=== PATIENT | male | born 1955 | race Caucasian/White ===

== ENCOUNTER 2022-10-07 15:24 | Emergency (ER) | payer MEDICARE, OTHER ==
[2022-10-07 16:11] LABS: ESTIMATED GFR 83 mL/min (>60)
== END 2022-10-07 16:37 | disposition home or self-care (01) ==
LOC: FB.ED 15:24
DX: I48.91 Unspecified atrial fibrillation (principal)
CPT/HCPCS: 36415; 80053; 83735; 84484; 85025; 93005; 99284